=== PATIENT | female | born 1980 | race Caucasian/White ===

== ENCOUNTER 2016-10-26 13:52 | Day surgery (SDC) | payer BC ==
[~2016-10-26] VITALS: Ht 162.6 cm; Wt 86.3 kg
[~2016-10-26 13:52] MED LIST: ATIVAN 0.50.5 MG/TAB PO; CARAFATE 1GM1 G PO; CELEXA 20MG20 MG/TAB PO; CIPRO 500MG TA500 MG PO; COLACE 100100 MG/CAP PO; DOXYCYCLINE 10100 MG PO; FLAGYL500 MG PO; IRON325 MG PO; LEVAQUIN 5500 MG/TA1 PO; MACROBID 1100 MG/CAP PO; MILK OF MA400 MG/52 PO; MOTRIN 600600 MG/TAB PO; MOTRIN 800800 MG/TAB PO; NORCO 325 MG-51 TAB PO; NORCO 325 MG-7.1 TAB PO; OMNICEF 300MG300 MG PO; PHENERGAN 25 TA25 MG PO; PHENERGAN25 MG RC; PRILOTC; PROTONIX 40MG T40 MG PO; REGLAN 10MG10 MG/TAB PO; ROXICODONE 55 MG/TAB PO; SEROQUEL XR50 MG PO; ULTRAM 50MG TAB50 MG PO; VICODIN 5/5001 UDTAB PO; XANAX 0.5MG0.5 MG PO; XANAX 1MG1 MG PO; XARELTO10 MG PO; XARELTO15 MG PO; XARELTO20 MG PO; ZOFRAN 4MG T4 MG/TAB PO; ZOFRAN ODT4 MG PO; ZOFRAN8 MG PO
[2016-10-26 14:44] VITALS: BP 120/90; PULSE 80; TEMP 98.8
[2016-10-26 16:30] VITALS: BP 97/65; PULSE 88; TEMP 97.8
[2016-10-26 16:45] VITALS: BP 104/73; PULSE 72
[2016-10-26] MEDS ORDERED: MIRALAX PA17 GM/Dose PO (16:55)
[2016-10-26 17:00] VITALS: BP 110/75; PULSE 78
[2016-10-26 17:15] VITALS: BP 101/63; PULSE 66
[2016-10-26 18:04] VITALS: BP 114/63; PULSE 85
== END 2016-10-26 17:30 | disposition home or self-care (01) ==
LOC: SDCO 13:52
DX: R19.4 Change in bowel habit (principal); K59.00 Constipation, unspecified; K63.89 Other specified diseases of intestine; Z85.038 Personal history of other malignant neoplasm of large intestine; K62.4 Stenosis of anus and rectum; D64.9 Anemia, unspecified
CPT/HCPCS: J2250; J2405; J3010; J7030

== ENCOUNTER 2016-12-04 21:42 | Inpatient (IN) | payer BC ==
[~2016-12-04] VITALS: Ht 162.6 cm; Wt 84.5 kg
[~2016-12-04 21:42] MED LIST changes: +MIRALAX PA17 GM/Dose PO
[2016-12-04 22:22] LABS: BASO % 0.3 % (0.0-2.0); EOS % 0.3 % (0-4.0); GRAN # 11.7 (1.4-6.5); GRAN % 78.7 % (42.2-75.2); LYMPH # 1.8 (1.2-3.4); LYMPH % 12.1 % (20.0-51.0); MEAN CELL VOLUME 77 fl (80.0-100.0); MEAN CORPUSCULAR HGB CONC 32 g/dl (33.0-37.0); MEAN PLATELET VOLUME 10.3 fl (7.4-10.4); MONO # 1.2 (0.1-0.6); MONO % 8.2 % (1.7-9.3); PLATELET COUNT 298 K/mm3 (130-400); RED BLOOD COUNT 3.87 M/mm3 (4.10-5.30); REDCELL DISTRIBUTION WIDTH-CV 15.2 % (11.5-14.5); WHITE BLOOD COUNT 14.8 K/mm3 (4.8-10.8)
[2016-12-04 22:23] LABS: HEMATOCRIT 29.6 % (37.0-47.0); HEMOGLOBIN 9.5 g/dl (12.5-16.0); MEAN CORPUSCULAR HEMOGLOBIN 25 pg (27.0-31.0)
[2016-12-04 22:35] LABS: ADJUSTED CALCIUM 8.6 mg/dL (8.4-10.2); ALBUMIN 3.8 gm/dL (3.5-5.0); BILIRUBIN,TOTAL 0.5 mg/dL (0.0-1.0); CALCIUM 8.4 mg/dL (8.4-10.2); CREATININE, serum 0.68 mg/dL (0.52-1.25); POTASSIUM 3.2 mmol/L (3.4-5.0); TOTAL PROTEIN 6.8 gm/dL (6.4-8.2)
[2016-12-04 23:03] LABS: C-REACTIVE PROTEIN 15.6 mg/dL (0.0-0.9)
[2016-12-04 23:26] LABS: PH 6 (5-8); SQUAMOUS EPITHELIAL 0-2 /hpf; URINE APPEARANCE Hazy; URINE BACTERIA Many /hpf; URINE BILIRUBIN Negative (NEGATIVE); URINE BLOOD 1+ (NEGATIVE); URINE COLOR Yellow; URINE GLUCOSE Negative (NEGATIVE); URINE KETONE Trace (NEGATIVE); URINE UROBILINOGEN >=4.0 mg/dL (NEGATIVE)
[2016-12-04 23:31] LABS: URINE WBC >50 /hpf
[2016-12-05] VITALS (7 sets, daily range): BP systolic 106–119; BP diastolic 62–70; PULSE 78–90; TEMP 98.5–99.6
[2016-12-05 08:00] LABS: BASO % 0.3 % (0.0-2.0); EOS # 0.1 (0.0-0.7); EOS % 0.6 % (0-4.0); GRAN # 9.2 (1.4-6.5); GRAN % 74.5 % (42.2-75.2); LYMPH # 1.8 (1.2-3.4); LYMPH % 14.7 % (20.0-51.0); MEAN CELL VOLUME 78 fl (80.0-100.0); MEAN CORPUSCULAR HGB CONC 30 g/dl (33.0-37.0); MEAN PLATELET VOLUME 10.3 fl (7.4-10.4); MONO # 1.2 (0.1-0.6); MONO % 9.5 % (1.7-9.3); PLATELET COUNT 260 K/mm3 (130-400); RED BLOOD COUNT 3.72 M/mm3 (4.10-5.30); REDCELL DISTRIBUTION WIDTH-CV 15.3 % (11.5-14.5); WHITE BLOOD COUNT 12.4 K/mm3 (4.8-10.8)
[2016-12-05 08:02] LABS: HEMOGLOBIN 8.8 g/dl (12.5-16.0); MEAN CORPUSCULAR HEMOGLOBIN 24 pg (27.0-31.0)
[2016-12-05 08:08] LABS: CALCIUM 7.8 mg/dL (8.4-10.2); CREATININE, serum 0.6 mg/dL (0.52-1.25); POTASSIUM 3.8 mmol/L (3.4-5.0)
[2016-12-06 03:30] VITALS: BP 112/69; PULSE 84; TEMP 98.6
[2016-12-06 08:24] VITALS: BP 115/71; PULSE 62; TEMP 98.2
[2016-12-06 12:04] VITALS: BP 102/57; PULSE 62; TEMP 98.5
[2016-12-06 15:20] VITALS: BP 118/70; PULSE 57; TEMP 98.5
[2016-12-06 19:37] VITALS: BP 113/75; PULSE 66; TEMP 98.5
[2016-12-06 23:18] VITALS: BP 107/66; PULSE 63; TEMP 98.2
[2016-12-07 03:25] VITALS: BP 110/70; PULSE 63; TEMP 98.6
[2016-12-07 07:15] VITALS: BP 111/60; PULSE 67; TEMP 98.3
[2016-12-07 08:38] LABS: CALCIUM 8.2 mg/dL (8.4-10.2); CREATININE, serum 0.52 mg/dL (0.52-1.25); MAGNESIUM 1.8 mg/dL (1.6-2.3); POTASSIUM 3.6 mmol/L (3.4-5.0)
[2016-12-07 11:17] LABS: BASO % 0.4 % (0.0-2.0); EOS # 0.3 (0.0-0.7); EOS % 4.4 % (0-4.0); GRAN # 4.9 (1.4-6.5); GRAN % 67.9 % (42.2-75.2); HEMATOCRIT 25.1 % (37.0-47.0); HEMOGLOBIN 7.8 g/dl (12.5-16.0); LYMPH # 1.5 (1.2-3.4); MEAN CELL VOLUME 78 fl (80.0-100.0); MEAN CORPUSCULAR HEMOGLOBIN 24 pg (27.0-31.0); MEAN CORPUSCULAR HGB CONC 31 g/dl (33.0-37.0); MEAN PLATELET VOLUME 11.2 fl (7.4-10.4); MONO # 0.5 (0.1-0.6); PLATELET COUNT 282 K/mm3 (130-400); RED BLOOD COUNT 3.22 M/mm3 (4.10-5.30); WHITE BLOOD COUNT 7.3 K/mm3 (4.8-10.8)
[2016-12-07 13:23] VITALS: BP 102/76; PULSE 62; TEMP 98
[2016-12-07 15:45] VITALS: BP 133/73; PULSE 50; TEMP 98.1
[2016-12-07 19:36] VITALS: BP 116/65; PULSE 72; TEMP 98.7
[2016-12-07 23:01] VITALS: BP 103/58; PULSE 66; TEMP 98.9
[2016-12-08 03:25] VITALS: BP 116/71; PULSE 65; TEMP 98.4
[2016-12-08 06:24] LABS: BASO % 0.6 % (0.0-2.0); EOS # 0.5 (0.0-0.7); EOS % 7.3 % (0-4.0); GRAN # 4.1 (1.4-6.5); GRAN % 57.7 % (42.2-75.2); LYMPH % 27.5 % (20.0-51.0); MEAN CELL VOLUME 78 fl (80.0-100.0); MEAN CORPUSCULAR HGB CONC 31 g/dl (33.0-37.0); MEAN PLATELET VOLUME 10.4 fl (7.4-10.4); MONO # 0.5 (0.1-0.6); MONO % 6.6 % (1.7-9.3); PLATELET COUNT 339 K/mm3 (130-400); RED BLOOD COUNT 3.48 M/mm3 (4.10-5.30); REDCELL DISTRIBUTION WIDTH-CV 14.8 % (11.5-14.5); WHITE BLOOD COUNT 7.1 K/mm3 (4.8-10.8)
[2016-12-08 06:26] LABS: HEMATOCRIT 27.2 % (37.0-47.0); HEMOGLOBIN 8.3 g/dl (12.5-16.0); MEAN CORPUSCULAR HEMOGLOBIN 24 pg (27.0-31.0)
[2016-12-08 06:36] LABS: CALCIUM 8.7 mg/dL (8.4-10.2); CREATININE, serum 0.6 mg/dL (0.52-1.25); POTASSIUM 3.9 mmol/L (3.4-5.0)
[2016-12-08 07:26] VITALS: BP 113/83; PULSE 62; TEMP 98.7
[2016-12-08] MEDS ORDERED: NORCO 325 MG-51 TAB PO (07:44)
[2016-12-08] MEDS ORDERED: CEFTIN 250250 MG/TAB PO (07:44)
[2016-12-08] MEDS ORDERED: FERROUS SU325 MG/TAB PO (09:01)
== END 2016-12-08 10:30 | disposition home or self-care (01) | DRG 690 ==
LOC: COL.ER 21:42 → MEDICAL 12-05 01:03
PROVIDERS: Nurse Practitioner Family; Physician Assistant
DX: N10 Acute pyelonephritis (principal); E87.1 Hypo-osmolality and hyponatremia; D50.9 Iron deficiency anemia, unspecified; E87.6 Hypokalemia; F17.210 Nicotine dependence, cigarettes, uncomplicated; K59.00 Constipation, unspecified; B96.20 Unspecified Escherichia coli [E. coli] as the cause of diseases classified elsewhere; D64.9 Anemia, unspecified; M32.9 Systemic lupus erythematosus, unspecified; Z85.048 Personal history of other malignant neoplasm of rectum, rectosigmoid junction, and anus; Z87.442 Personal history of urinary calculi
CPT/HCPCS: 99222-AI; 99233-AI; 99239; J0696; J1170; J1650; J2405; J7030

== ENCOUNTER 2017-02-17 17:46 | Emergency (ER) | payer BC ==
[~2017-02-17] VITALS: Ht 162.6 cm; Wt 85.5 kg
[~2017-02-17 17:46] MED LIST changes: +CEFTIN 250250 MG/TAB PO; +FERROUS SU325 MG/TAB PO
[2017-02-17 17:49] VITALS: BP 127/72; TEMP 97.2
[2017-02-17 18:37] LABS: BASO # 0.1 (0.0-0.2); BASO % 0.5 % (0.0-2.0); EOS # 0.2 (0.0-0.7); EOS % 2.2 % (0-4.0); GRAN # 7.7 (1.4-6.5); GRAN % 73.8 % (42.2-75.2); HEMATOCRIT 37.2 % (37.0-47.0); LYMPH # 1.7 (1.2-3.4); LYMPH % 16.2 % (20.0-51.0); MEAN CELL VOLUME 79 fl (80.0-100.0); MEAN CORPUSCULAR HGB CONC 31 g/dl (33.0-37.0); MEAN PLATELET VOLUME 9.9 fl (7.4-10.4); MONO # 0.7 (0.1-0.6); MONO % 6.8 % (1.7-9.3); PLATELET COUNT 415 K/mm3 (130-400); WHITE BLOOD COUNT 10.4 K/mm3 (4.8-10.8)
[2017-02-17 18:47] LABS: HEMOGLOBIN 11.5 g/dl (12.5-16.0); MEAN CORPUSCULAR HEMOGLOBIN 24 pg (27.0-31.0)
[2017-02-17 18:48] LABS: ADJUSTED CALCIUM 9.6 mg/dL (8.4-10.2); ALBUMIN 4.4 gm/dL (3.5-5.0); BILIRUBIN,TOTAL 0.7 mg/dL (0.0-1.0); CALCIUM 9.9 mg/dL (8.4-10.2); CREATININE, serum 0.69 mg/dL (0.52-1.25); POTASSIUM 3.8 mmol/L (3.4-5.0); TOTAL PROTEIN 7.6 gm/dL (6.4-8.2)
[2017-02-17] MEDS ORDERED: ZOFRAN 4MG T4 MG/TAB PO (19:27)
[2017-02-17 19:31] LABS: PH 6 (5-8); SQUAMOUS EPITHELIAL 0-2 /hpf; URINE APPEARANCE Clear; URINE BACTERIA None Seen /hpf; URINE BILIRUBIN Negative (NEGATIVE); URINE BLOOD Negative (NEGATIVE); URINE COLOR Yellow; URINE GLUCOSE Negative (NEGATIVE); URINE KETONE Negative (NEGATIVE); URINE RBC 0-2 /hpf; URINE UROBILINOGEN Negative (NEGATIVE); URINE WBC 0-2 /hpf
[2017-02-17 20:10] VITALS: PULSE 72
== END 2017-02-17 20:10 | disposition home or self-care (01) ==
LOC: COL.ER 17:46
PROVIDERS: Emergency Medicine
DX: R11.10 Vomiting, unspecified (principal); R19.7 Diarrhea, unspecified
CPT/HCPCS: J1200; J2405; J2930; J7030; J8540

== ENCOUNTER 2017-05-17 22:55 | Emergency (ER) | payer BC ==
[~2017-05-17] VITALS: Ht 162.6 cm; Wt 81.8 kg
[2017-05-17 23:13] VITALS: TEMP 98.4
[2017-05-17] MEDS ORDERED: NORCO 325 MG-51 TAB PO (23:19)
[2017-05-18 00:20] LABS: COLLECTION METHOD CLEAN CATCH
[2017-05-18 00:26] LABS: MUCOUS Present /lpf; PH 6 (5-8); SQUAMOUS EPITHELIAL 0-2 /hpf; URINE APPEARANCE Clear; URINE BACTERIA None Seen /hpf; URINE BILIRUBIN Negative (NEGATIVE); URINE BLOOD Negative (NEGATIVE); URINE COLOR Yellow; URINE GLUCOSE Negative (NEGATIVE); URINE KETONE Trace (NEGATIVE); URINE LEUKOCYTE ESTERASE Negative (NEGATIVE); URINE NITRATE Negative (NEGATIVE); URINE PROTEIN(semi-quant) Negative (NEGATIVE)
[2017-05-18 01:30] VITALS: BP 110/80; PULSE 70
== END 2017-05-18 01:30 | disposition home or self-care (01) ==
LOC: COL.ER 22:55
PROVIDERS: Emergency Medicine
DX: N76.0 Acute vaginitis (principal)
CPT/HCPCS: J0696

== ENCOUNTER 2017-07-25 01:02 | Emergency (ER) | payer BC ==
[~2017-07-25] VITALS: Ht 162.6 cm; Wt 89.7 kg
[2017-07-25 01:05] VITALS: BP 110/65; TEMP 97.8
[2017-07-25 01:36] LABS: COLLECTION METHOD CLEAN CATCH
[2017-07-25 01:39] LABS: BASO # 0.1 (0.0-0.2); EOS # 0.5 (0.0-0.7); EOS % 4.8 % (0-4.0); GRAN # 5.6 (1.4-6.5); GRAN % 54.1 % (42.2-75.2); LYMPH # 3.5 (1.2-3.4); LYMPH % 33.5 % (20.0-51.0); MEAN CELL VOLUME 78 fl (80.0-100.0); MEAN CORPUSCULAR HGB CONC 31 g/dl (33.0-37.0); MONO # 0.6 (0.1-0.6); MONO % 6.2 % (1.7-9.3); PLATELET COUNT 402 K/mm3 (130-400); RED BLOOD COUNT 4.13 M/mm3 (4.10-5.30); REDCELL DISTRIBUTION WIDTH-CV 15.5 % (11.5-14.5)
[2017-07-25 01:41] LABS: HEMATOCRIT 32.1 % (37.0-47.0); HEMOGLOBIN 9.8 g/dl (12.5-16.0); MEAN CORPUSCULAR HEMOGLOBIN 24 pg (27.0-31.0)
[2017-07-25 01:44] LABS: MUCOUS Present /lpf; PH 5 (5-8); SQUAMOUS EPITHELIAL 0-2 /hpf; URINE APPEARANCE Clear; URINE BACTERIA None Seen /hpf; URINE BILIRUBIN Negative (NEGATIVE); URINE BLOOD Negative (NEGATIVE); URINE CALCIUM OXALATE CRYSTAL Present /hpf; URINE COLOR Yellow; URINE GLUCOSE Negative (NEGATIVE); URINE KETONE Negative (NEGATIVE); URINE LEUKOCYTE ESTERASE Negative (NEGATIVE); URINE NITRATE Negative (NEGATIVE); URINE PROTEIN(semi-quant) Negative (NEGATIVE); URINE UROBILINOGEN Negative (NEGATIVE)
[2017-07-25 01:55] LABS: ALANINE AMINOTRANSFERASE 26 U/L (9-52); ALBUMIN 4.3 gm/dL (3.5-5.0); ALKALINE PHOSPHATASE 69 U/L (50-136); ANION GAP 11 mmol/L (7-16); AST,SGOT 14 U/L (15-37); BILIRUBIN,TOTAL 0.1 mg/dL (0.0-1.0); BLOOD UREA NITROGEN 12 mg/dL (7-17); CARBON DIOXIDE 28 mmol/L (22-30); CHLORIDE 105 mmol/L (98-107); CREATININE, serum 0.71 mg/dL (0.52-1.25); GLUCOSE 91 mg/dL (74-106); LIPASE 91 U/L (23-300); POTASSIUM 3.5 mmol/L (3.4-5.0); SODIUM 144 mmol/L (137-145)
[2017-07-25 01:56] LABS: C-REACTIVE PROTEIN < 0.5 mg/dL (0.0-0.9)
[2017-07-25] MEDS ORDERED: NORCO 325 MG-51 TAB PO (03:23)
[2017-07-25 04:06] VITALS: PULSE 60
== END 2017-07-25 04:08 | disposition home or self-care (01) ==
LOC: COL.ER 01:02
PROVIDERS: Family Medicine
DX: R10.31 Right lower quadrant pain (principal); Z87.42 Personal history of other diseases of the female genital tract; Z90.49 Acquired absence of other specified parts of digestive tract
CPT/HCPCS: J1200; J2270; J2405; J2930; J7030; Q9967